=== PATIENT | male | born 1995 | race African-American/Black ===

== ENCOUNTER 2020-12-14 18:08 | Emergency (ER) | payer SELFPAY ==
--- NOTE | ~2020-12-14 | XR_ITS ---
EXAMINATION: XR finger 4th RT min 2V DATE: 12/14/2020 18:24 INDICATION: Basketball injury with pain at the right distal interphalangeal joint. TECHNIQUE: Dorsal palmar, lateral and 2 oblique views of the right digit were obtained COMPARISON: None FINDINGS: Alignment is normal. No fracture. Joint spaces are normal. . Soft tissue swelling about the fourth pr oximal interphalangeal joint. IMPRESSION: 1. No osseous abnormality. Reviewed, dictated and finalized at location A. IMPRESSION: 1. No osseous abnormality.
[2020-12-14 18:14] VITALS: BP 140/84; PULSE 69; RESP 16; TEMP 36.6; O2SAT 100
--- NOTE | 2020-12-14 18:16 | ED.UPPEXIN ---
HPI - Extremity Injury (Upper) General Chief Complaint: Extremity Injury, Upper Stated Complaint: injured finger Time Seen by Provider: 12/14/20 18:14 History of Present Illness HPI narrative: 25-year-old male presents to the [facility] unable to completely straighten his DIP joint right ring finger after playing basketball last night. Had been playing basketball when he jammed his finger. Wear splint all night to try to help. Upper refill under 2 seconds. No wounds or swelling noted MD complaint: injury to: right Related Data Home Medications Medication Instructions Recorded Confirmed No Home Medications 12/14/20 12/14/20 Allergies Allergy/AdvReac Type Severity Reaction Status Date / Time No Known Allergies Allergy Verified 12/14/20 18:18 Review of Systems Review of Systems: All systems reviewed & are unremarkable except as noted in HPI and below Constitutional: Constitutional: Reports no additional constitutional complaints, Denies chills and Denies fever(s) Eyes: Eyes: Reports no additional eye complaints ENT: Reports system reviewed and no additional complaints, except as documented Cardiovascular: Cardiovascular: Reports no additional cardiovascular complaints Respiratory: Respiratory: Reports no additional respiratory complaints Musculoskeletal: Musculoskeletal: Reports as per HPI, Denies arthralgias and Denies joint swelling Comments: Ring finger DIP joint will not fully extend Integumentary/Breasts: Skin/Breast: Reports system reviewed and no additional complaints, except as docu Neurologic: Reports system reviewed and no additional complaints, except as documented Psychiatric: Psychiatric: Reports no additional psychiatric complaints Allergic/Immunologic: Allergic/Immunologic: Reports no additional allergic/immunologic complaints PMFSH Past Medical History Medical History (Updated 12/14/20 @ 18:51 by Barb Smith) No significant medical problems Surgical History Surgical History (Updated 12/14/20 @ 18:25 by Barb Smith) No pertinent past surgical history Social History Social History (Updated 12/14/20 @ 18:25 by Barb Smith) Smoking status: Never smoker Living arrangements: with family Gender identity (if verbalized by the patient): Male Comments At the time of my signature, I reviewed and agree with the nursing past medical, surgical, social, and family history. There is no relevant family history pertinent to the patient complaint. Exam Const: General: healthy appearing, no acute distress and alert Nutritional Appearance: well nourished Orientation/consciousness: patient oriented x3 Limitations: no limitations HENMT: Head: normal to inspection Eyes: Pupils: Equal, round and reactive pupils present Neck: Neck: normal visual inspection, no lymphadenopathy and no meningeal signs Chest: Chest palpation & inspection: normal inspection of the chest Resp: Effort & Inspection: normal respiratory effort Cardio: Rate: regular rate Rhythm: regular rhythm Back/Spine/Pelvis: Back: no CVA tenderness Skin: General skin exam: normal color Rashes: no rashes Wounds: no wounds Neuro: General: patient oriented x3, moves all extremities, no meningeal signs and no focal motor deficits Speech: normal speech Gait exam (Neuro): Normal gait present Extrem: General: normal to inspection, full ROM, capillary refill normal and normal exam except as noted Hand/finger images: 1. Unable to fully Extend. No redness, bruising or swelling noted. Capillary refill under 2 seconds. Sensation intact. Full range of motion of the joint Psych: Appearance: grossly normal and well kempt Mental Status: mental status grossly normal Affect: normal affect Attitude: cooperative Thought content: Yes Normal thought content present Course Course Emergency Course: Discharge instructions reviewed with patient, as well as provided in writing per nursing staff. The instruction
== END 2020-12-14 18:56 | disposition home or self-care (01) ==
PROVIDERS: Emergency Provider Nurse Practitioner
DX: M20.011 Mallet finger of right finger(s) (principal)
CPT/HCPCS: 29130; 73140; 99213; G0463